=== PATIENT | male | born 1970 | race American Indian/Alaskan Native ===

== ENCOUNTER 2018-04-20 12:09 | Emergency (ER) | payer BC ==
[2018-04-20 12:43] VITALS: BMI 28.7
[2018-04-20] MEDS ORDERED: SODIUM CHLORIDE 0.9% 1000 ML INFUS.BAG IV STA (13:05)
[2018-04-20] MEDS ORDERED: ACETAMINOPHEN 1000 MG/100 ML VIAL (NON FORMULARY) IVPB ONE (13:05)
[2018-04-20 13:25] LABS: BASO % 0.7 % (0-2.0); EOS % 0.1 % (0-4.5); HEMATOCRIT 46.1 % (35.4-49); HEMOGLOBIN 15.7 GM/dL (11.7-16.9); LYMPH % 4.2 % (8-40); MCH 29.5 pg (25.7-33.7); MCHC 34.1 g/dl (32.0-35.9); MEAN CELL VOLUME 86.6 fl (80-96); MEAN PLT VOLUME 8.4 fl (7.5-11.1); PLATELET COUNT 201 K/MM3 (134-434); RBC 5.32 M/mm3 (4.00-5.60); RDW 12.9 % (11.9-15.9); WHITE BLOOD COUNT 8.6 K/mm3 (4.0-10.0)
[2018-04-20 13:33] LABS: INR 1.13 (0.83-1.09); PROTHROMBIN TIME (PATIENT) 13.3 SEC (9.7-13.0)
--- NOTE | 2018-04-20 13:33 | PDOC ---
History of Present Illness <Colin Waite - Last Filed: 04/20/18 17:26> - General History Source: Patient Exam Limitations: No Limitations - History of Present Illness Initial Comments: 04/20/18 13:28 Patient is a 48M with history of hemorrhoids here today complaining of one day of fever, chills, body aches, and right sided bank pain. Patient also states that he had dysuria, but that resolved three days ago. He says that he had an episode of blood streaked stools with bright red blood today. Denies chest pain , cough, shortness of breath. Denies abdominal pain, nausea, vomiting. Denies testicular pain. <JohnnyYousif - Last Filed: 04/20/18 18:45> - General Chief Complaint: Rectal Bleed Stated Complaint: PANIC ATTACK Time Seen by Provider: 04/20/18 12:45 Past History <Colin Waite - Last Filed: 04/20/18 17:26> - Past Medical History COPD: No DVT: No - Immunization History Immunization Up to Date: Yes - Suicide/Smoking/Psychosocial Hx Smoking History: Never smoked Hx Alcohol Use: No Drug/Substance Use Hx: No Substance Use Type: None <JohnnyYousif - Last Filed: 04/20/18 18:45> - Past Medical History Allergies/Adverse Reactions: Allergies Allergy/AdvReac Type Severity Reaction Status Date / Time Penicillins Allergy Verified 04/20/18 13:19 Home Medications: Ambulatory Orders NK [No Known Home Medication] 04/20/18 Review of Systems - Review of Systems Comments:: 04/20/18 13:32 GENERAL/CONSTITUTIONAL: +fever +chills. No weakness. HEAD, EYES, EARS, NOSE AND THROAT: No change in vision. No sore throat. CARDIOVASCULAR: No chest pain or shortness of breath RESPIRATORY: No cough, wheezing, or hemoptysis. GASTROINTESTINAL: No nausea, vomiting, diarrhea or constipation. GENITOURINARY: +dysuria, no frequency, or change in urination. MUSCULOSKELETAL: +bodyaches. No neck +back pain. SKIN: No rash NEUROLOGIC: No headache, vertigo, loss of consciousness, or change in strength/ sensation. ENDOCRINE: No increased thirst. No abnormal weight change HEMATOLOGIC/LYMPHATIC: No anemia, easy bleeding, or history of blood clots. ALLERGIC/IMMUNOLOGIC: No hives or skin allergy. <Yousif Turner - Last Filed: 04/20/18 18:45> *Physical Exam - Vital Signs Last Vital Signs Temp Pulse Resp BP Pulse Ox 98.8 F 106 H 18 120/64 98 04/20/18 16:07 04/20/18 16:07 04/20/18 16:07 04/20/18 14:15 04/20/18 14:15 <MariannColin - Last Filed: 04/20/18 17:26> - Vital Signs Last Vital Signs Temp Pulse Resp BP Pulse Ox 102.6 F H 156 H 20 122/85 100 04/20/18 12:38 04/20/18 12:38 04/20/18 12:38 04/20/18 12:38 04/20/18 13:21 - Physical Exam Comments: 04/20/18 13:32 GENERAL: Awake, alert, and fully oriented, in no acute distress HEAD: No signs of trauma, normocephalic, atraumatic EYES: PERRLA, EOMI, sclera anicteric, conjunctiva clear ENT: Auricles normal inspection, hearing grossly normal, nares patent, oropharynx clear without exudates. Moist mucosa NECK: Normal ROM, supple, no lymphadenopathy, JVD, or masses LUNGS: No distress, speaks full sentences, clear to auscultation bilaterally HEART: Regular rate and rhythm, normal S1 and S2, no murmurs, rubs or gallops, peripheral pulses normal and equal bilaterally. ABDOMEN: Soft, nontender, normoactive bowel sounds. No guarding, no rebound. No masses. +R CVA tenderness RECTAL: Small hemorrhoid, nontender, no masses, no javy blood EXTREMITIES: Normal inspection, Normal range of motion, no edema. No clubbing or cyanosis. NEUROLOGICAL: Cranial nerves II through XII grossly intact. Normal speech, normal gait, no focal sensorimotor deficits SKIN: Warm, Dry, normal turgor, no rashes or lesions noted. <Yousif Turner - Last Filed: 04/20/18 18:45> ED Treatment Course - LABORATORY CBC & Chemistry Diagram: 04/20/18 13:07 04/20/18 13:07 - ADDITIONAL ORDERS Additional order review: Laboratory Results 04/20/18 04/20/18 04/20/18 13:30 13:07 13:07 PT with INR INR PTT (Actin FS) Sodium Potassium Chloride Carbon Dioxide Anion Gap BUN Creatinine Creat Clearance w eGFR Random Glucose Lactic Acid 1.3 Calcium Total Bilirubin AST ALT Alkaline Phosphatase Troponin I < 0.02 Total Protein Albumin Urine Color Yellow Urine Appearance Clear Urine pH 5.0 Ur Specific [place] 1.016 Urine Protein Negative Urine Glucose (UA) Negative Urine Ketones 1+ H Urine Blood Negative Urine Nitrite Negative Urine Bilirubin Negative Urine Urobilinogen Negative Ur Leukocyte Esterase Negative Stool Occult Blood 04/20/18 04/20/18 04/20/18 13:07 13:07 13:07 PT with INR 13.30 H INR 1.13 H PTT (Actin FS) 25.2 Sodium 135 L Potassium 3.8 Chloride 100 Carbon Dioxide 26 Anion Gap 9 BUN 12 Creatinine 1.1 Creat Clearance w eGFR > 60 Random Glucose 132 H Lactic Acid Calcium 9.4 Total Bilirubin 1.1 H AST 29 ALT 68 H Alkaline Phosphatase 79 Troponin I Total Protein 8.6 H Albumin 4.5 Urine Color Urine Appearance Urine pH Ur Specific [place] Urine Protein Urine Glucose (UA) Urine Ketones Urine Blood Urine Nitrite Urine Bilirubin Urine Urobilinogen Ur Leukocyte Esterase Stool Occult Blood Positive 04/20/18 13:07 Influenza Types A,B Antigen - Final Nasopharyngeal Swab - Final 04/20/18 13:07 RBC 5.32 MCV 86.6 MCHC 34.1 RDW 12.9 MPV 8.4 Neutrophils % 90.0 H Lymphocytes % 4.2 L Monocytes % 5.0 Eosinophils % 0.1 Basophils % 0.7 - Medications Given in the ED: ED Medications Discontinued Medications Generic Name Dose Route Start Last Admin Trade Name Teddy PRN Reason Stop Dose Admin Acetaminophen 1,000 mg 04/20/18 13:05 04/20/18 13:37 Ofirmev Injection - IVPB 04/20/18 13:06 1,000 mg ONCE ONE Administration Ketorolac Tromethamine 15 mg 04/20/18 15:59 04/20/18 16:07 Toradol Injection - IVPUSH 04/20/18 16:00 15 mg ONCE ONE Administration Sodium Chloride 2,722 ml 04/20/18 13:05 04/20/18 13:37 Normal Saline - 30 ml/kg (2722 ml) 04/20/18 13:06 2,722 ml IV Administration ONCE STA <Ou,Colin - Last Filed: 04/20/18 17:26> - LABORATORY CBC & Chemistry Diagram: 04/20/18 13:07 04/20/18 13:07 - ADDITIONAL ORDERS Additional order review: Laboratory Results 04/20/18 13:07 Stool Occult Blood Positive 04/20/18 13:07 RBC 5.32 MCV 86.6 MCHC 34.1 RDW 12.9 MPV 8.4 Neutrophils % 90.0 H Lymphocytes % 4.2 L Monocytes % 5.0 Eosinophils % 0.1 Basophils % 0.7 - RADIOLOGY Radiology Studies Ordered: Category Date Time Status CHEST X-RAY PORTABLE* [RAD] Stat Radiology 04/20/18 13:05 Taken <JohnnyYousif - Last Filed: 04/20/18 18:45> Medical Decision Making - Medical Decision Making 04/20/18 13:33 Patient is 48M here today with bodyaches, fevers, chills, ?dysuria, hemorrhoids. Vital signs notable for tachycardia and fever. BP stable. Patient has hemorrhoids, but believe GI bleed is less likely cause of symptoms. DDx includes, but is not limited to: influenza, UTI/pyelo, other intra-abdominal process. Septic workup initiated, given IV fluids and tylenol. CXR shows no acute cardiopulmonary process. 04/20/18 18:44 UA clear. CBC normal. CMP reassuring. Unable to isolate cause of fever, CT done to rule out abdominal process. CT shows gallstones. Patient given additional liter of fluids. Believe patient most likely has viral infection. Given work note and return precautions. Patient expressed understanding. Alert, ambulatory at discharge. Improved. <Yousif Turner - Last Filed: 04/20/18 18:45> *DC/Admit/Observation/Transfer <Colin Waite - Last Filed: 04/20/18 17:26> <Yousif Turner - Last Filed: 04/20/18 18:45> Diagnosis at time of Disposition: Fever - Discharge Dispostion Disposition: HOME - Referrals Referrals: Ingrid Mandujano MD [Primary Care Provider] - Gavi Armijo MD [Staff Physician] - - Patient Instructions Printed Discharge Instructions: DI for Gallstones, DI for Hemorrhoids Additional Instructions: Drink plenty of fluids to stay hydrated. Take tylenol or motrin as needed for fever and pain. You have gallstones. Follow up with a GI doctor within 1 week for further evaluation. Call the number provided to make an appointment. If you experience abdominal pain, vomiting, fevers, or any other concerning symptoms, return to the ER immediately. - Post Discharge Activity Forms/Work/School Notes: Back to Work
[2018-04-20 13:36] LABS: ACTIVATED PTT 25.2 SECONDS (25.2-36.5)
[2018-04-20 13:40] LABS: URINE APPEARANCE CLEAR; URINE BILIRUBIN NEGATIVE (<2.0 mg/dL); URINE COLOR YELLOW; URINE GLUCOSE (UA) NEGATIVE (NEGATIVE); URINE KETONE 1+ (NEGATIVE); URINE LEUK ESTERASE NEGATIVE (NEGATIVE); URINE NITRITE NEGATIVE (NEGATIVE); URINE PROTEIN NEGATIVE (NEGATIVE); URINE UROBILINOGEN NEGATIVE mg/dL (0.2-1.0)
[2018-04-20 13:47] LABS: ALBUMIN 4.5 g/dl (3.4-5.0); ALK PHOS 79 U/L (45-117); ANION GAP 9 MMOL/L (8-16); BILIRUBIN,TOTAL 1.1 mg/dL (0.2-1); BLOOD UREA NITROGEN 12 mg/dL (7-18); CALCIUM 9.4 mg/dL (8.5-10.1); CHLORIDE 100 mmol/L (98-107); CO2 26 mmol/L (21-32); CREATININE 1.1 mg/dL (0.55-1.3); GLUCOSE,RANDOM 132 mg/dL (74-106); POTASSIUM 3.8 mmol/L (3.5-5.1); SGOT/AST 29 U/L (15-37); SGPT/ALT 68 U/L (13-61); SODIUM 135 mmol/L (136-145); TOT PROT 8.6 g/dl (6.4-8.2)
[2018-04-20 14:16] VITALS: BP 120/64
[2018-04-20] MEDS ORDERED: SODIUM CHLORIDE 1,000 ML IV STA ×2 (14:18→16:16)
[2018-04-20] MEDS ORDERED: KETOROLAC TROMETHAMINE 30 MG/1 ML VIAL IVPUSH ONE (15:59)
[2018-04-20] MEDS ORDERED: KETOROLAC TROMETHAMINE 15 MG/ML VIAL ONE (16:03)
[2018-04-20 16:07] VITALS: TEMP 98.8
--- NOTE | 2018-04-20 16:08 | PDOC ---
Attending Attestation - Resident Resident Name: Yousif Turner - ED Attending Attestation I have performed the following: I have examined & evaluated the patient, The case was reviewed & discussed with the resident, I agree w/resident's findings & plan, Exceptions are as noted - HPI HPI: 04/20/18 16:02 48M with no PMH presents to ED with R lower back pain and blood streaked stool. Pt states that he has had the R lower back pain for years, but it acutely worsened yesterday. He denies dysuria. Pt states that he had an episode of blood streaked stool today as well. States that he has a history of hemorrhoids. Denies any dark tarry stool. Pt also found to be febrile in ED but denies feeling feverish or chills. Denies cough. Denies abdominal pain. - Physicial Exam PE: 04/20/18 16:05 GENERAL: Awake, alert, and fully oriented, in no acute distress. HEAD: No signs of trauma EYES: PERRLA, EOMI, sclera anicteric, conjunctiva clear ENT: Auricles normal inspection, hearing grossly normal, nares patent, oropharynx clear without exudates. Moist mucosa NECK: Nontender, no stepoffs, Normal ROM, supple, no lymphadenopathy, JVD, or masses LUNGS: Breath sounds equal, clear to auscultation bilaterally. No wheezes, and no crackles HEART: Regular rate and rhythm, normal S1 and S2, no murmurs, rubs or gallops ABDOMEN: Soft, nontender, normoactive bowel sounds. No guarding, no rebound. No masses BACK: + R CVAT, no midline tenderness, no stepoffs EXTREMITIES: Normal range of motion, no edema. No clubbing or cyanosis. No cords, erythema, or tenderness NEUROLOGICAL: Cranial nerves II through XII intact. 5/5 strength and sensation in all extremities, Normal speech, normal gait, normal cerebellar function SKIN: Warm, Dry, normal turgor, no rashes or lesions noted. - Medical Decision Making 04/20/18 16:07 48 M with fever, R flank pain, and blood streaked stool. Will evaluate for pyelo vs infected stone. Blood in stool likely 2/2 hemorrhoid. - Labs, cultures - UA, UCx - CXR - CTAP 04/20/18 16:09 CT shows cholelithiasis. Pt with bili 1.1. No RUQ tenderness, negative callahan's. Pt reassessed - vitals improving, now defervesced UA and flu swab negative Labs otherwise normal 04/20/18 17:45 HR now 96 Pt is well appearing, with normal vitals. Clinically stable for DC at this time. I discussed the physical exam findings, ancillary test results and final diagnoses with the patient. I answered all of the patient's questions. The patient was satisfied with the care received and felt comfortable with the discharge plan and treatment plan. The patient agrees to follow up with the primary care physician within 24-72 hours.
[2018-04-20 17:47] VITALS: PULSE 96
== END 2018-04-20 17:47 | disposition home or self-care (01) ==
LOC: JER 12:09
PROC: 3E033NZ Introduction of Analgesics, Hypnotics, Sedatives into Peripheral Vein, Percutaneous Approach (ICD-10-PCS; principal; 2018-04-20)
PROC: 3E0333Z Introduction of Anti-inflammatory into Peripheral Vein, Percutaneous Approach (ICD-10-PCS; 2018-04-20)
DX: R50.9 Fever, unspecified (principal); K64.9 Unspecified hemorrhoids; K80.20 Calculus of gallbladder without cholecystitis without obstruction
CPT/HCPCS: 36415; 71045-TC-FY; 74177-TC; 80053; 81003; 82272; 83605; 84484; 85025; 85610; 85730; 87040; 87086; 87804; 99284-25; J0131; J7030